=== PATIENT | male | born 1965 | race Caucasian/White ===

== ENCOUNTER 2016-06-29 12:49 | Inpatient (IN) | payer OTHER ==
[2016-06-29 13:39] VITALS: BMI 26.6
--- NOTE | 2016-06-29 15:14 | HP ---
COWS - Scale Resting Pulse: 1= [place] 81-100 Sweatin=Flushed/Facial Moisture Restless Observation: 1= Difficult to Sit Still Pupil Size: 1= Pupils >than Normal Bone or Joint Aches: 2= Severe Diffuse Aches Runny Nose/ Eye Tearin= Runny Nose/Eyes GI Upset > 30mins: 1= Stomach Cramp Tremor Observation: 1= Tremor [place], Not Seen Yawning Observation: 4= Several Times/Minute Anxiety or Irritability: 2=Irritable/Anxious Goose Flesh Skin: 0=Smooth Skin COWS Score: 17 Admission ROS S - HPI Chief Complaint: I need help to stop using heroin . Allergies/Adverse Reactions: Allergies Allergy/AdvReac Type Severity Reaction Status Date / Time No Known Allergies Allergy Verified 06/29/16 15:21 History of Present Illness: 51 y/o m pt with h/o iv heroin dependency seeking detox. Exam Limitations: No Limitations - Ebola screening Have you traveled outside of the country in the last 21 days: No Have you had contact with anyone from an Ebola affected area: No Have you been sick,other than usual withdrawal symptoms: No Do you have a fever: No - Review of Systems Constitutional: Malaise, Night Sweats EENT: reports: Blurred Vision, Nose Congestion Respiratory: reports: No Symptoms reported Cardiac: reports: No Symptoms Reported GI: reports: Nausea, Abdominal cramping : reports: No Symptoms Reported Musculoskeletal: reports: Joint Pain, Muscle Pain Integumentary: reports: Sweating Neuro: reports: No Symptoms reported Endocrine: reports: No Symptoms Reported Hematology: reports: No Symptoms Reported Psychiatric: reports: No Sypmtoms Reported Other Systems: Reviewed and Negative Patient History - Patient Medical History Hx Anemia: No Hx Asthma: No Hx Hypertension: No Hx Hypercholesterolemia: No Hx Pacemaker: No HX Cerebrovascular Accident: No Hx Seizures: No Hx Dementia: No Hx Diabetes: No Hx Gastrointestinal Disorders: No Hx Liver Disease: No Hx Genitourinary Disorders: No Hx Sexually Transmitted Disorders: No Hx Renal Disease (ESRD): No Hx Thyroid Disease: No Hx Human Immunodeficiency Virus (HIV): No Hx Hepatitis C: Yes Hx Depression: No Hx Suicide Attempt: No Hx Bipolar Disorder: No Hx Schizophrenia: No - Patient Surgical History Hx Orthopedic Surgery: Yes (c-spine , ti, t2 ) - PPD History Documented Results: Negative w/o proof PPD to be Administered?: Yes - Reproductive History Patient is a Female of Child Bearing Age (11 -55 yrs old): No - Smoking Cessation Smoking history: Current every day smoker Have you smoked in the past 12 months: Yes Aproximately how many cigarettes per day: 20 Cigars Per Day: 0 Hx Chewing Tobacco Use: No Initiated information on smoking cessation: Yes 'Breaking Loose' booklet given: 06/29/16 - Substance & Tx. History Hx Alcohol Use: No Hx Substance Use: Yes Substance Use Type: Heroin Hx Substance Use Treatment: Yes ([facility] ) - Substances Abused Heroin Route: Injection Frequency: Daily Amount used: 9 bags/d Age of first use: 46 Date of Last Use: 06/28/16 Family Disease History - Family Disease History Family History: Denies Admission Physical Exam [facility] - Vital Signs Vital Signs: Vital Signs - 24 hr 06/29/16 13:36 Temperature 97 F L Pulse Rate 92 H Respiratory 20 Rate Blood Pressure 129/72 51 y/o m pt yawning , restless ,cooperating with exam - Physical General Appearance: Yes: Disheveled, Irritable, Sweating, Anxious HEENTM: Yes: EOMI, Hearing grossly Normal, Normocephalic, Normal Voice, ДМИТРИЙ, Nasal Congestion, Rhinorrhea Respiratory: Yes: Within Normal Limits Neck: Yes: Supple, Trachea in good position Breast: Yes: Within Normal Limits Cardiology: Yes: Regular Rhythm, Regular Rate, S1, S2 Abdominal: Yes: Non Tender, Flat, Soft, Increased Bowel Sounds Genitourinary: Yes: Frequency Back: Yes: Decreased Range of Motion Musculoskeletal: Yes: Back pain, Muscle Pain Extremities: Yes: Within Normal Limits Neurological: Yes: housekeeping manager II-XII NML intact, Fully Oriented, Alert, Motor Strength 5/5, Normal Response Integumentary: Yes: Track Grimes (pham forearms) Lymphatic: Yes: Within Normal Limits - Diagnostic (1) Hep C w/o coma, chronic Current Visit: Yes Status: Chronic (2) Nicotine dependence Current Visit: Yes Status: Chronic Qualifiers: Nicotine product type: cigarettes Substance use status: uncomplicated Qualified Code(s): F17.210 - Nicotine dependence, cigarettes, uncomplicated (3) Opioid dependence with withdrawal Current Visit: Yes Status: Chronic Cleared for Admission [facility] - Detox or Rehab [facility] Level of Care: Medically Managed Detox Regimen/Protocol: Methadone, Suboxone [facility] Breath Alcohol Content Breath Alcohol Content: 0 Urine Drug Screen - Results Drug Screen Negative: No Urine Drug Screen Results: OPI-Opiates
[2016-06-29] MEDS ORDERED: hydrOXYzine PAMOATE 25 MG CAPSULE (FP) PO PRN (15:22)
[2016-06-29] MEDS ORDERED: MAGNESIUM HYDROX 2400MG/30ML ORAL SUSPENSION 30 ML CUP PO PRN (15:22)
[2016-06-29] MEDS ORDERED: NICOTINE POLACRILEX 4 MG GUM BC PRN (15:22)
[2016-06-29] MEDS ORDERED: MAG HYDROX/AL HYDROX/SIMETH 30 ML UNIT-DOSE CUP PO PRN (15:22)
[2016-06-29] MEDS ORDERED: LOPERAMIDE HCL 2 MG CAPSULE PO PRN (15:22)
[2016-06-29] MEDS ORDERED: ACETAMINOPHEN 325 MG TABLET (FP) PO PRN (15:22)
[2016-06-29] MEDS ORDERED: P-EPHED 60MG/TRIPROLIDI 2.5MG TABLET PO PRN (15:22)
[2016-06-29] MEDS ORDERED: guaiFENesin/D-METHORPHAN HB 10 ML UNIT-DOSE CUPS PO PRN (15:22)
[2016-06-29] MEDS ORDERED: MENTHOL/PHENOL 1 EACH UD MM PRN (15:22)
[2016-06-29] MEDS ORDERED: MAGNESIUM CITRATE 300 ML BOTTLE PO PRN (15:22)
[2016-06-29] MEDS ORDERED: METHADONE HCL 10 MG TABLET (FOR DETOX USE ONLY) PO ONE ×2 (17:00→23:00)
[2016-06-29] MEDS: diazePAM 5 MG TABLET PO PRN ×2 (18:19→22:55)
[2016-06-29] MEDS: THIAMINE HCL 100 MG TABLET (FP) PO SCH (22:56)
[2016-06-29] MEDS: diphenhydrAMINE HCL 50 MG CAPSULE PO PRN (22:56)
[2016-06-30] MEDS ORDERED: CYCLOBENZAPRINE HCL 10 MG TABLET (FP) PO PRN (00:41)
[2016-06-30] MEDS: diphenhydrAMINE HCL 50 MG CAPSULE PO PRN (01:04)
[2016-06-30] MEDS: IBUPROFEN 400 MG TABLET (FP) PO PRN (01:04)
[2016-06-30] MEDS ORDERED: METHADONE HCL 10 MG TABLET (FOR DETOX USE ONLY) PO ONE (10:00)
[2016-06-30 10:08] LABS: URINE APPEARANCE CLEAR; URINE BILIRUBIN NEGATIVE (NEGATIVE); URINE BLOOD NEGATIVE (NEGATIVE); URINE COLOR LTYELLOW; URINE GLUCOSE (UA) NEGATIVE (NEGATIVE); URINE KETONE NEGATIVE (NEGATIVE); URINE LEUK ESTERASE NEGATIVE (NEGATIVE); URINE NITRITE NEGATIVE (NEGATIVE); URINE PROTEIN NEGATIVE (NEGATIVE); URINE UROBILINOGEN NEGATIVE E.U./dl (0.2-1.0)
[2016-06-30 10:15] LABS: MCH 30.2 pg (25.7-33.7); MCHC 33.3 g/dl (32.0-35.9); MEAN CELL VOLUME 90.7 fl (80-96); MEAN PLT VOLUME 9.1 fl (7.5-11.1); PLATELET COUNT 207 K/MM3 (134-434); WHITE BLOOD COUNT 9.6 K/mm3 (4.0-10.0)
[2016-06-30 10:56] LABS: ALBUMIN 4.3 g/dl (3.4-5.0); ALK PHOS 71 U/L (45-117); ANION GAP 9 (8-16); BILIRUBIN,TOTAL 0.4 mg/dL (0.2-1.0); CALCIUM 8.8 mg/dL (8.5-10.1); CO2 28 mmol/L (21-32); GLUCOSE,RANDOM 89 mg/dL (74-106); SGOT/AST 20 U/L (15-37); SGPT/ALT 21 U/L (12-78); TOT PROT 7.7 g/dl (6.4-8.2)
[2016-06-30] MEDS: PRENATAL VITAMINS W/ FOLIC ACID TABLET (FP) PO SCH (11:05)
[2016-06-30] MEDS: NICOTINE 21 MG/24 HOURS TOPICAL PATCH TD SCH (11:06)
[2016-06-30] MEDS: diazePAM 5 MG TABLET PO PRN (11:08)
--- NOTE | 2016-06-30 12:35 | PN ---
S COWS - Scale Resting Pulse: 1= [place] 81-100 Sweatin= Chills/Flushing Restless Observation: 1= Difficult to Sit Still Pupil Size: 1= Pupils >than Normal Bone or Joint Aches: 1= Mild Discomfort Runny Nose/ Eye Tearin= Nasal Congestion GI Upset > 30mins: 1= Stomach Cramp Tremor Observation of Outstretched Hands: 1= Tremor [place], Not Seen Yawning Observation: 0= None Anxiety or Irritability: 2=Irritable/Anxious Goose Flesh Skin: 0=Smooth Skin COWS Score: 10 S Progress Note (SOAP) Subjective: interrupted sleep, sweats, cramps Objective: 06/30/16 12:34 Vital Signs Temperature 97.2 F L 06/30/16 10:27 Pulse Rate 103 H 06/30/16 10:27 Respiratory Rate 20 06/30/16 10:27 Blood Pressure 112/69 06/30/16 10:27 O2 Sat by Pulse Oximetry (%) Laboratory Tests 06/30/16 06/30/16 06/30/16 06:00 06:00 06:00 WBC 9.6 RBC 4.94 Hgb 14.9 Hct 44.8 MCV 90.7 MCHC 33.3 RDW 13.0 Plt Count 207 MPV 9.1 Sodium 140 Potassium 4.6 Chloride 103 Carbon Dioxide 28 Anion Gap 9 BUN 19 H Creatinine 1.0 Creat Clearance w eGFR > 60 Random Glucose 89 Calcium 8.8 Total Bilirubin 0.4 AST 20 ALT 21 Alkaline Phosphatase 71 Total Protein 7.7 Albumin 4.3 Urine Color Urine Appearance Urine pH Ur Specific [place] Urine Protein Urine Glucose (UA) Urine Ketones Urine Blood Urine Nitrite Urine Bilirubin Urine Urobilinogen Ur Leukocyte Esterase RPR Titer Nonreactive 06/30/16 07:00 WBC RBC Hgb Hct MCV MCHC RDW Plt Count MPV Sodium Potassium Chloride Carbon Dioxide Anion Gap BUN Creatinine Creat Clearance w eGFR Random Glucose Calcium Total Bilirubin AST ALT Alkaline Phosphatase Total Protein Albumin Urine Color Ltyellow Urine Appearance Clear Urine pH 6.0 Ur Specific [place] 1.017 Urine Protein Negative Urine Glucose (UA) Negative Urine Ketones Negative Urine Blood Negative Urine Nitrite Negative Urine Bilirubin Negative Urine Urobilinogen Negative Ur Leukocyte Esterase Negative RPR Titer interrupted sleep, sweats, cramps pt aox3 lying in bed , restless 06/30/16 12:34 06/30/16 15:16 Assessment: 06/30/16 12:34 withdrawal sx's 06/30/16 15:16 Plan: cont. detox increase fluids analgesic balm
[2016-06-30] MEDS: THIAMINE HCL 100 MG TABLET (FP) PO SCH (22:56)
[2016-06-30] MEDS: METHYL SALICYLATE/MENTHOL OINT 30 GM TUBE TP SCH (22:56)
[2016-07-01] MEDS ORDERED: METHADONE HCL 5 MG TABLET (FOR DETOX USE ONLY) PO ONE (10:00)
[2016-07-01] MEDS: PRENATAL VITAMINS W/ FOLIC ACID TABLET (FP) PO SCH (10:20)
[2016-07-01] MEDS: METHYL SALICYLATE/MENTHOL OINT 30 GM TUBE TP SCH ×2 (10:20→22:17)
[2016-07-01] MEDS: NICOTINE 21 MG/24 HOURS TOPICAL PATCH TD SCH (10:50)
[2016-07-01] MEDS: cloNIDine HCL 0.1 MG TABLET PO SCH ×2 (11:00→22:19)
--- NOTE | 2016-07-01 11:58 | EKG ---
Test Reason : Blood Pressure : / mmHG Vent. Rate : 067 BPM Atrial Rate : 067 BPM P-R Int : 184 ms QRS Dur : 106 ms QT Int : 410 ms P-R-T Axes : 051 061 036 degrees QTc Int : 433 ms NORMAL SINUS RHYTHM NON-SPECIFIC INTRA-VENTRICULAR CONDUCTION DELAY NO PREVIOUS ECGS AVAILABLE Confirmed by ANDREW THURSTON MD ([id number]) on 07/01/2016 11:58:34 AM Referred By: Confirmed By:ANDREW THURSTON MD
--- NOTE | 2016-07-01 12:16 | PN ---
S COWS - Scale Resting Pulse: 0= [place] 80 or Below Sweatin= Chills/Flushing Restless Observation: 3= Extraneous Movement Pupil Size: 1= Pupils >than Normal Bone or Joint Aches: 2= Severe Diffuse Aches Runny Nose/ Eye Tearin= Runny Nose/Eyes GI Upset > 30mins: 3= Vomiting/Diarrhea Tremor Observation of Outstretched Hands: 2= Slight Tremor Visible Yawning Observation: 1= 1-2x During Session Anxiety or Irritability: 2=Irritable/Anxious Goose Flesh Skin: 0=Smooth Skin COWS Score: 17 S Progress Note (SOAP) Subjective: ALERT,IRRITABLE,ANXIOUS,INTERRUPTED SLEEP,TREMOR,PAIN IN THE BODY AND BACK Objective: 07/01/16 12:14 Vital Signs Temperature 97.9 F 07/01/16 10:26 Pulse Rate 79 07/01/16 10:26 Respiratory Rate 20 07/01/16 10:26 Blood Pressure 132/89 07/01/16 10:26 O2 Sat by Pulse Oximetry (%) EKG NSR,NORMAL ECG Laboratory Last Values WBC 9.6 K/mm3 (4.0-10.0) 06/30/16 06:00 RBC 4.94 M/mm3 (4.00-5.60) 06/30/16 06:00 Hgb 14.9 GM/dL (11.7-16.9) 06/30/16 06:00 Hct 44.8 % (35.4-49) 06/30/16 06:00 MCV 90.7 fl (80-96) 06/30/16 06:00 MCHC 33.3 g/dl (32.0-35.9) 06/30/16 06:00 RDW 13.0 % (11.9-15.9) 06/30/16 06:00 Plt Count 207 K/MM3 (134-434) 06/30/16 06:00 MPV 9.1 fl (7.5-11.1) 06/30/16 06:00 Sodium 140 mmol/L (136-145) 06/30/16 06:00 Potassium 4.6 mmol/L (3.5-5.1) 06/30/16 06:00 Chloride 103 mmol/L (98-107) 06/30/16 06:00 Carbon Dioxide 28 mmol/L (21-32) 06/30/16 06:00 Anion Gap 9 (8-16) 06/30/16 06:00 BUN 19 mg/dL (7-18) H 06/30/16 06:00 Creatinine 1.0 mg/dL (0.7-1.3) 06/30/16 06:00 Creat Clearance w eGFR > 60 (>60) 06/30/16 06:00 Random Glucose 89 mg/dL (74-106) 06/30/16 06:00 Calcium 8.8 mg/dL (8.5-10.1) 06/30/16 06:00 Total Bilirubin 0.4 mg/dL (0.2-1.0) 06/30/16 06:00 AST 20 U/L (15-37) 06/30/16 06:00 ALT 21 U/L (12-78) 06/30/16 06:00 Alkaline Phosphatase 71 U/L (45-117) 06/30/16 06:00 Total Protein 7.7 g/dl (6.4-8.2) 06/30/16 06:00 Albumin 4.3 g/dl (3.4-5.0) 06/30/16 06:00 Urine Color Ltyellow 06/30/16 07:00 Urine Appearance Clear 06/30/16 07:00 Urine pH 6.0 (5.0-8.0) 06/30/16 07:00 Ur Specific [place] 1.017 (1.001-1.035) 06/30/16 07:00 Urine Protein Negative (NEGATIVE) 06/30/16 07:00 Urine Glucose (UA) Negative (NEGATIVE) 06/30/16 07:00 Urine Ketones Negative (NEGATIVE) 06/30/16 07:00 Urine Blood Negative (NEGATIVE) 06/30/16 07:00 Urine Nitrite Negative (NEGATIVE) 06/30/16 07:00 Urine Bilirubin Negative (NEGATIVE) 06/30/16 07:00 Urine Urobilinogen Negative E.U./dl (0.2-1.0) 06/30/16 07:00 Ur Leukocyte Esterase Negative (NEGATIVE) 06/30/16 07:00 RPR Titer Nonreactive (NONREACTIVE) 06/30/16 06:00 Assessment: 07/01/16 12:15 WITHDRAWAL SYMPTOM Plan: CONTINUE DETOX
[2016-07-01] MEDS: diazePAM 5 MG TABLET PO PRN ×3 (13:06→22:17)
[2016-07-01] MEDS: CYCLOBENZAPRINE HCL 10 MG TABLET (FP) PO SCH ×2 (13:06→22:17)
[2016-07-01] MEDS: IBUPROFEN 400 MG TABLET (FP) PO PRN (13:06)
[2016-07-01] MEDS ORDERED: cloNIDine HCL 0.1 MG TABLET ONE (15:30)
[2016-07-01] MEDS: diphenhydrAMINE HCL 50 MG CAPSULE PO PRN (22:17)
[2016-07-01] MEDS: THIAMINE HCL 100 MG TABLET (FP) PO SCH (22:17)
[2016-07-02] MEDS: CYCLOBENZAPRINE HCL 10 MG TABLET (FP) PO SCH ×3 (07:40→22:51)
[2016-07-02] MEDS ORDERED: METHADONE HCL 5 MG TABLET (FOR DETOX USE ONLY) PO ONE (10:00)
[2016-07-02] MEDS: PRENATAL VITAMINS W/ FOLIC ACID TABLET (FP) PO SCH (10:59)
[2016-07-02] MEDS: METHYL SALICYLATE/MENTHOL OINT 30 GM TUBE TP SCH ×2 (10:59→23:00)
[2016-07-02] MEDS: cloNIDine HCL 0.1 MG TABLET PO SCH ×2 (11:00→22:51)
[2016-07-02] MEDS: NICOTINE 21 MG/24 HOURS TOPICAL PATCH TD SCH (11:00)
[2016-07-02] MEDS: IBUPROFEN 400 MG TABLET (FP) PO PRN (11:03)
--- NOTE | 2016-07-02 11:35 | PN ---
S Progress Note (SOAP) Subjective: ALERT,IRRITABLE,ANXIOUS,INTERRUPTED SLEEP,PAIN IN THE BACK Objective: 07/02/16 11:35 Vital Signs Temperature 97 F L 07/02/16 09:57 Pulse Rate 77 07/02/16 09:57 Respiratory Rate 18 07/02/16 09:57 Blood Pressure 120/68 07/02/16 09:57 O2 Sat by Pulse Oximetry (%) Assessment: 07/02/16 11:35 WITHDRAWAL SYMPTOM Plan: CONTINUE DETOX
[2016-07-02] MEDS: THIAMINE HCL 100 MG TABLET (FP) PO SCH (22:51)
[2016-07-02] MEDS: diphenhydrAMINE HCL 50 MG CAPSULE PO PRN (22:51)
[2016-07-03] MEDS: CYCLOBENZAPRINE HCL 10 MG TABLET (FP) PO SCH (05:13)
[2016-07-03] MEDS ORDERED: METHADONE HCL 10 MG TABLET (FOR DETOX USE ONLY) PO ONE (10:00)
--- NOTE | 2016-07-03 10:15 | PN ---
[facility] Progress Note (SOAP) Subjective: ALERT,NO COMPLAINT Objective: 07/03/16 10:13 Vital Signs Temperature 97.9 F 07/03/16 06:02 Pulse Rate 99 H 07/03/16 06:02 Respiratory Rate 20 07/03/16 06:02 Blood Pressure 97/54 07/03/16 06:02 O2 Sat by Pulse Oximetry (%) Assessment: 07/03/16 10:13 PATIENT IS STABLE FOR DISCHARGE STATED HAS JOB INTERVIEW EARLY IN AM 07/04/16 Plan: DISCHARGE TODAY,FOLLOW UP WITH AFTER CARE PROGRAM ARRANGEMENT
--- NOTE | 2016-07-03 10:19 | DS ---
[facility] Detox Discharge Summary Admission Date: 06/29/16 Discharge Date: 07/03/16 - History Present History: Opioid Dependence Additional Comments: PATIENT IS STABLE FOR DISCHARGE TODAY,FOLLOW UP WITH AFTER CARE PROGRAM ARRANGEMENT,STATED HAS A JOB INTERVIEW IN AM Pertinent Past History: HEPATITIS C - Physical Exam Results Vital Signs: Vital Signs Temperature 97.9 F 07/03/16 06:02 Pulse Rate 99 H 07/03/16 06:02 Respiratory Rate 20 07/03/16 06:02 Blood Pressure 97/54 07/03/16 06:02 O2 Sat by Pulse Oximetry (%) Pertinent Admission Physical Exam Findings: WITHDRAWAL SYMPTOM - Treatment Hospital Course: Detox Protocol Followed, Detoxed Safely, Responded well, Discharged Condition Good Patient has Accepted a Rehab Referral to: DECLINED - Medication Discharge Medications: Ambulatory Orders NK [No Known Home Medication] 06/29/16 - Diagnosis (1) Hep C w/o coma, chronic Current Visit: Yes Status: Chronic (2) Nicotine dependence Current Visit: Yes Status: Chronic Qualifiers: Nicotine product type: cigarettes Substance use status: uncomplicated Qualified Code(s): F17.210 - Nicotine dependence, cigarettes, uncomplicated (3) Opioid dependence with withdrawal Current Visit: Yes Status: Chronic - AMA Did Patient Leave Against Medical Advice: No
[2016-07-03] MEDS: cloNIDine HCL 0.1 MG TABLET PO SCH (10:41)
[2016-07-03] MEDS: METHYL SALICYLATE/MENTHOL OINT 30 GM TUBE TP SCH (10:41)
[2016-07-03] MEDS: PRENATAL VITAMINS W/ FOLIC ACID TABLET (FP) PO SCH (10:41)
[2016-07-03] MEDS: NICOTINE 21 MG/24 HOURS TOPICAL PATCH TD SCH (10:42)
[2016-07-03 10:49] VITALS: BP 114/69; PULSE 97; TEMP 98.8
[2016-07-04] MEDS ORDERED: METHADONE HCL 5 MG TABLET (FOR DETOX USE ONLY) PO ONE (06:00)
== END 2016-07-03 11:55 | disposition home or self-care (01) | DRG 897 ==
LOC: YASAS 12:49 → Y6N 15:49
PROVIDERS: ADMIT Internal Medicine Addiction Medicine; ATTEND Internal Medicine Addiction Medicine
PROC: HZ2ZZZZ Detoxification Services for Substance Abuse Treatment (ICD-10-PCS; principal; 2016-06-29)
DX: F11.23 Opioid dependence with withdrawal (principal); F17.210 Nicotine dependence, cigarettes, uncomplicated; B18.2 Chronic viral hepatitis C
CPT/HCPCS: 36415; 80053; 81003; 85027; 86593; 93005; 93010